=== PATIENT | male | born 1995 | race Caucasian/White ===

== ENCOUNTER 2019-09-22 16:18 | Emergency (ER) | payer OTHER, SELFPAY ==
--- OUTSIDE RECORDS SUMMARY | 2019-09-22 16:20 | XMS REPORT | Summary of Care ---
:1995 Author Organization [facility] - [facility] Address [address] [place] [id number] Care Team Providers Name Role Phone Chriss Bonilla Primary Care Provider Reason for Referral Radiology Services (STAT) Status Reason Specialty Diagnoses / Referred By Referred To Procedures Contact Contact New Request Diagnostic Diagnoses Knee injury, left, initial encounter Ventura Perez Radiology Procedures XR KNEE 4+ VW LEFT III, PA [address] [place] [address] [facility] [place] [place] [address] Radiology Services (STAT) Status Reason Specialty Diagnoses / Referred By Referred To Procedures Contact Contact New Request Diagnostic Diagnoses Knee injury, left, initial encounter Ventura Perez Radiology Procedures XR KNEE 4+ VW LEFT III, PA [address] [place] [address] [facility] [place] [address] Reason for Visit Reason Comments Knee Pain left Auth/Cert Status Reason Specialty Diagnoses / Referred By Referred To Procedures Contact Contact [facility] [address] [place] [address] [place] [address] Encounter Details Date Type Department Care Team Description 05/25/2019 Emergency [facility]Emer[facility] Ventura Perez III, Knee injury, left, Department PA initial encounter [address] [place] [address] Dr Chavez [facility] (Primary Dx) [place] [address] [place], [place] [id number] Allergies No Known Allergiesdocumented as of this encounter (statuses as of 05/25/2019) Medications Medication Sig Dispensed Refills Start Date End Date Status ibuprofen 600 mg Take 1 tablet 10 tablet 0 05/25/2019 05/30/2019 Active tabletIndications: Knee by mouth 4 injury, left, initial (four) times encounter daily as needed for Pain (scale 4-6) for up to 5 days. acetaminophen (TYLENOL) Take 3 tablets 60 tablet 0 05/25/2019 05/30/2019 Active 325 mg by mouth 4 tabletIndications: Knee (four) times injury, left, initial daily for 5 encounter days. This is the maximum safe dose for a healthy adult. traMADol (ULTRAM) 50 mg Take 1 tablet 9 tablet 0 05/25/2019 Active tabletIndications: Knee by mouth every injury, left, initial 8 (eight) hours encounter as needed for Pain (scale 4-6). cyclobenzaprine 5 mg Take 1 tablet 9 tablet 0 05/25/2019 Active tabletIndications: Knee by mouth 3 injury, left, initial (three) times encounter daily. documented as of this encounter (statuses as of 05/25/2019) Active Problems No known active problemsdocumented as of this encounter (statuses as of 2018) Social History Tobacco Use Types Packs/Day Years Used Date Never Assessed Sex Assigned at Date Recorded Not on file Job Start Date Occupation Industry Not on file Not on file Not on file Travel History Travel Start Travel End No recent travel history available. documented as of this encounter Last Filed Vital Signs Vital Sign Reading Time Taken Comments Blood Pressure 130/72 05/25/2019 3:35 PM CDT Pulse 96 05/25/2019 3:35 PM CDT Temperature 36.8 C (98.2 F) 05/25/2019 3:35 PM CDT Respiratory Rate 18 05/25/2019 3:35 PM CDT Oxygen Saturation 98% 05/25/2019 3:35 PM CDT Inhaled Oxygen Concentration - - Weight 123.8 kg (273 lb) 05/25/2019 3:35 PM CDT Height 180.3 cm (5' 11") 05/25/2019 3:35 PM CDT Body Mass Index 38.08 05/25/2019 3:35 PM CDT documented in this encounter Discharge Instructions Ventura Nieto III, PA - 05/25/2019 @@@@@@@@@@@@@@@@@@@@@@@@@@@@@@@@@@@@@@@@@@@@@@@@@@@@@ [facility] HEALTH RETURN TO WORK / SCHOOL EXCUSE Paolo Dwyer Jr. WAS SEEN IN THE ER AND DISCHARGED 05/25/2019 TODAY, 4:37 PM & May return to Work / School / Incarceration on 05/26/19 with No limitations unless indicated below. ___The following limitations apply until pt is seen by Physician and cleared to return to normal activity. ___ Light duty ___ No Sports ___ No work ___ Do not return until fever free for 24 hours. ___ No school [employer] [facility] [address] [place] [address] [place] [address] If you are unprepared to return to work tomorrow due to pain please give this note to your employer and make a follow up appointment with your MD for further evaluation and limitations. ### The patient may have been given Narcotic pain medications during their stay in the ED that may show up on a Drug Screen. The hospital discharge paper work will identify these medications. @@@@@@@@@@@@@@@@@@@@@@@@@@@@@@@@@@@@@@@@@@@@@@@@@@@@@ Thank you for trusting us with your care. The emergency room is the first stop in the medical management of your complaint . Our primary pupose is to identify life threatening emergancies and to rapidly address those issues. We are releasing you today after evaluation for emergency or life threatening problems related to your complaint. At this time we are comfortable that your condition is stable enough to go home, take oral medications and follow up for further care. If you can't afford a doctor OR MEDICATIONS consider [facility], [address] [place] [address]; [phone] Medications What's Trending WILL SHOW YOU WHERE YOU CAN GET YOUR MEDICATIONS CHEAPEST. 1. Call your doctor and let them know you were seen for ICD-10-CM ICD-9-CM 1. Knee injury, left, initial encounter S89.92XA 959.7 2. Schedule a follow up within 3 days of your ER visit. 3. Take your prescriptions to the pharmacy and get them filled today. 4. Take the medications as prescribed and until completed. 5. You have been referred for further care 6. You may need additional tests Your doctors will help you figure out what you need and how to get them done. 7. Please read all paperwork provided to you. Additional instructions See Attached AttachmentsThe following attachments cannot be sent through Care Everywhere.Sprains and Fractures: First Aid (Guinean)Strains and Sprains, Self- Care for ([place]an)documented in this encounter Plan of Treatment Name Type Priority Associated Diagnoses Date/Time XR KNEE 4+ VW LEFT IMAGING STAT Knee injury, left, 05/25/2019 4:29 PM CDT initial encounter Health Maintenance Due Date Last Done Comments VARICELLA VACCINES (1 of 2 - 13+ 01/28/2008 2-dose series) DTaP,Tdap,and Td Vaccines (1 - 2014 Tdap) INFLUENZA VACCINE (#1) 2019 HPV VACCINES Aged Out No longer eligible based on patient's age to complete this topic PNEUMOCOCCAL 0-64 YEARS COMBINED Aged Out No longer eligible based on SERIES patient's age to complete this topic documented as of this encounter Procedures Procedure Name Priority Date/Time Associated Diagnosis Comments XR KNEE 4+ VW LEFT STAT 05/25/2019 4:29 PM CDT Knee injury, left, initial encounter Procedure Note - [facility], Radiant Results Inft User - 05/25/2019 5:07 PM CDT EXAM: XR KNEE 4+ VW LEFT HISTORY: knee injury COMPARISON: None available. FINDINGS: Radiographs of the left knee demonstrate no acute fracture or dislocation. Diffuse soft tissue swelling of the knee is seen. Severe prepatellar soft tissue swelling is consistent with prepatellar bursitis. IMPRESSION No acute bony abnormality. Prepatellar bursitis. NOTICE OF PRIVACY PRACTICES Routine 05/25/2019 3:30 PM CDT CONSENT/REFUSAL FOR DIAGNOSIS AND TREATMENT Routine 05/25/2019 3:29 PM CDT documented in this encounter Results Not on filedocumented in this encounter Visit Diagnoses Diagnosis Knee injury, left, initial encounter - Primary documented in this encounter Administered Medications Medication Order MAR Action Action Date Dose Rate Site HYDROcodone-acetaminophen Given 05/25/2019 4:00 PM CDT 1 tablet (NORCO 5) 5-325 mg tablet 1 tablet 1 tablet, Oral, ONCE, 1 dose, 05/25/19 at 1700, [place] documented in this encounter
--- OUTSIDE RECORDS SUMMARY | 2019-09-22 16:20 | XMS REPORT ---
:1995 Author Organization [facility] Address [address] [place] [address] Dr. Kirk [address] [place] [address] Care Team Providers Name Role Phone Unavailable Unavailable Unavailable Problems This patient has no known problems. Allergies, Adverse Reactions, Alerts This patient has no known allergies or adverse reactions. Medications This patient has no known medications.
[2019-09-22 16:46] LABS: Absolute Lymphocytes (CBC) 2.3 K/uL (0.7-4.9); Basophils % 0.4 % (0-1.3); Hematocrit 43.2 % (39.6-49.0); Lymphocytes % 21.3 % (15.3-44.8); MPV 10.3 fL (7.6-11.3); RBC Red Blood Cell Count 4.77 M/uL (4.33-5.43)
[2019-09-22] MEDS ORDERED: FENTANYL CITR 100 MCG/2 ML ONE (16:58)
[2019-09-22 17:05] LABS: BUN Blood Urea Nitrogen 12 mg/dL (7-18); Bicarbonate 26 mmol/L (21-32); Glucose Level 92 mg/dL (74-106); Potassium 3.9 mmol/L (3.5-5.1); Sodium Level 141 mmol/L (136-145)
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
[2019-09-22 19:10] VITALS: BP 121/97; TEMP 97.8; O2SAT 100
== END 2019-09-22 18:15 | disposition home or self-care (01) ==
LOC: ER 16:18
DX: S00.81XA Abrasion of other part of head, initial encounter (principal); S50.811A Abrasion of right forearm, initial encounter; S80.812A Abrasion, left lower leg, initial encounter; S80.811A Abrasion, right lower leg, initial encounter; S40.011A Contusion of right shoulder, initial encounter; M25.511 Pain in right shoulder; V28.4XXA Motorcycle driver injured in noncollision transport accident in traffic accident, initial encounter
CPT/HCPCS: 36415; 70450; 71260; 72125; 74177; 80048; 85025; 86850; 86900; 86901; 96374; 99284; J3010; Q9967

== ENCOUNTER 2021-08-19 19:07 | Emergency (ER) | payer SELFPAY ==
[2021-08-19 21:05] LABS: SARS-COV-2 RT PCR NEGATIVE (NEGATIVE)
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
[2021-08-19 22:15] VITALS: BP 136/74; TEMP 97.7; O2SAT 100
== END 2021-08-19 21:58 | disposition home or self-care (01) ==
LOC: ER 19:07
DX: Z20.822 Contact with and (suspected) exposure to COVID-19 (principal)
CPT/HCPCS: 0240U; 87070; 87081; 99283

== ENCOUNTER 2021-08-22 19:05 | Emergency (ER) | payer SELFPAY ==
--- OUTSIDE RECORDS SUMMARY | 2021-08-22 19:07 | XMS REPORT | Continuity of Care Document ---
:1995 Author Organization [facility] t Address [address] [place] [address] Dr. Kirk [address] [place] [id number] Care Team Providers Name Role Phone Unavailable Unavailable Unavailable Problems This patient has no known problems. Allergies, Adverse Reactions, Alerts This patient has no known allergies or adverse reactions. Medications This patient has no known medications. Procedures This patient has no known procedures. Results This patient has no known results.
--- NOTE | 2021-08-22 20:38 | RAD REPORT ---
EXAM DESCRIPTION: RAD - Wrist Left 3 View - 08/22/2021 8:21 pm CLINICAL HISTORY: PAIN Pain COMPARISON: No comparisons FINDINGS: No fracture or dislocation seen. No foreign body or other soft tissue abnormality. IMPRESSION: Negative examination.
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
[2021-08-22 21:38] VITALS: BP 96/54; TEMP 98.8; O2SAT 100
== END 2021-08-22 21:29 | disposition home or self-care (01) ==
LOC: ER 19:05
DX: G89.11 Acute pain due to trauma (principal); S80.02XA Contusion of left knee, initial encounter; V49.40XA Driver injured in collision with unspecified motor vehicles in traffic accident, initial encounter; F17.210 Nicotine dependence, cigarettes, uncomplicated; Z87.820 Personal history of traumatic brain injury
CPT/HCPCS: 72100; 99284

== ENCOUNTER 2022-02-24 14:34 | Emergency (ER) | payer SELFPAY ==
--- OUTSIDE RECORDS SUMMARY | 2022-02-24 14:36 | XMS REPORT | Continuity of Care Document ---
:1995 Author Organization [facility] t Address [address] [place] [address] Dr. Kirk [address] [place] [id number] Care Team Providers Name Role Phone Unavailable Unavailable Unavailable Problems This patient has no known problems. Allergies, Adverse Reactions, Alerts This patient has no known allergies or adverse reactions. Medications This patient has no known medications. Procedures This patient has no known procedures. Results This patient has no known results.
--- NOTE | 2022-02-24 15:38 | RAD REPORT ---
EXAM DESCRIPTION: RAD - Chest Single View - 02/24/2022 3:20 pm CLINICAL HISTORY: CHEST PAIN COMPARISON: CHEST PA AND LAT 2 VIEW dated 05/11/2009; CHEST PA AND LAT 2 VIEW dated 10/13/2005 FINDINGS: Lines: None. Lungs: No evidence of edema or pneumonia. Pleural: No significant pleural effusions or pneumothorax. Cardiac: The heart size is within normal limits. Bones: No acute fractures. Other: GRAPHIC USER INTERFACE DESIGNER shunt overlies the right hemithorax. IMPRESSION: No acute cardiopulmonary disease.
[2022-02-24 15:46] LABS: Absolute Lymphocytes (CBC) 1.7 K/uL (0.7-4.9); Hematocrit 43.9 % (39.6-49.0); MPV 9.5 fL (7.6-11.3); RBC Red Blood Cell Count 4.77 M/uL (4.33-5.43)
[2022-02-24 15:52] LABS: Protime INR 1.04
[2022-02-24 16:06] LABS: ALT/SGPT 31 U/L (12-78); AST/SGOT 14 U/L (15-37); Albumin 3.8 g/dL (3.4-5.0); Alkaline Phosphatase 89 U/L (45-117); BUN Blood Urea Nitrogen 13 mg/dL (7-18); Bicarbonate 26 mmol/L (21-32); Bilirubin Direct 0.1 mg/dL (0-0.2); Bilirubin Total 0.3 mg/dL (0.2-1.0); Glomerular Filtration Rate 125 ml/min (=/>90); Glucose Level 97 mg/dL (74-106); Magnesium 2.5 mg/dL (1.8-2.4); NT PRO-BNP 32 pg/mL (<125); Potassium 3.9 mmol/L (3.5-5.1); Protein, Total 6.9 g/dL (6.4-8.2); Sodium Level 140 mmol/L (136-145)
[2022-02-24 16:18] LABS: Troponin High Sensitivity < 3.0 pg/mL (<58.9)
[2022-02-24] MEDS ORDERED: ASPIRIN 81 MG CHEWABLE TABLET ONE (16:59)
--- NOTE | 2022-02-24 17:28 | RAD REPORT ---
EXAM DESCRIPTION: CT - Head Brain Wo Cont - 02/24/2022 5:12 pm CLINICAL HISTORY: Dizziness COMPARISON: Head C Spine Cap W Con dated 09/22/2019 TECHNIQUE: All CT scans are performed using dose optimization technique as appropriate and may inclu de automated exposure control or mA/KV adjustment according to patient size. FINDINGS: No intracranial hemorrhage, hydrocephalus or extra-axial fluid collection.No areas of brai n edema or evidence of midline shift. Left parietal craniotomy. Multifocal areas of encephalomalacia including the middle cranial fossa and frontal lobes. ELASTIC ATTACHER ZIGZAG shunt in place. Ventricular configuration is similar. The paranasal sinuses and mastoids are clear. IMPRESSION: No acute intracranial abnormality.
[2022-02-24] MEDS ORDERED: MECLIZINE HCL 12.5 MG TAB ONE (18:19)
--- NOTE | 2022-02-24 19:24 | ER ---
Nurse's Notes [facility] Name: Paolo Dwyer Jr Age: 27 yrs Sex: Male : 1995 Arrival Date: 02/24/2022 Time: 14:35 Bed 10 Private MD: Diagnosis: Vertigo;Chest Pain;Pericarditis Presentation: 02/24 14:43 Chief complaint: Patient states: episodes of dizziness, sweating, left arm pain, and aa5 chest pain x 2 weeks ago. Coronavirus screen: At this time, the client does not indicate any symptoms associated with coronavirus-19. Ebola Screen: No symptoms or risks identified at this time. Initial Sepsis Screen: Does the patient meet any 2 criteria? No. Patient's initial sepsis screen is negative. Does the patient have a suspected source of infection? No. Patient's initial sepsis screen is negative. Risk Assessment: Do you want to hurt yourself or someone else? Patient reports no desire to harm self or others. Onset of symptoms was February 2022. 14:43 Acuity: REJI 3 aa5 14:43 Method Of Arrival: Ambulatory aa5 Historical: - Allergies: 14:45 No Known Allergies; aa5 - Home Meds: 14:45 None [Active]; aa5 - PMHx: 14:45 TBI; aa5 - PSHx: 14:45 Brain shunt; aa5 - Immunization history:: Adult Immunizations unknown. - Social history:: Smoking status: Patient reports the use of cigarette tobacco products, smokes one-half pack cigarettes per day. Screenin:25 Abuse screen: Denies threats or abuse. Nutritional screening: No deficits noted. jb4 Tuberculosis screening: No symptoms or risk factors identified. Fall Risk None identified. Assessment: 15:25 General: Appears in no apparent distress. comfortable, Behavior is calm, cooperative, jb4 appropriate for age. Pain: Complains of pain in left lateral anterior chest Pain radiates to left arm Pain currently is 0 out of 10 on a pain scale. at worst was 6 out of 10 on a pain scale. Quality of pain is described as pressure, Pain began 1 hour ago. Neuro: Level of Consciousness is awake, alert, obeys commands, Oriented to person, place, time, situation. Cardiovascular: Patient's skin is warm and dry. Respiratory: Airway is patent Respiratory effort is even, unlabored, Respiratory pattern is regular, symmetrical. Derm: Skin is intact, Skin is pink, warm \T\ dry. Musculoskeletal: Circulation, motion, and sensation intact. Range of motion: intact in all extremities. 17:00 Reassessment: Patient appears in no apparent distress at this time. Patient and/or jb4 family updated on plan of care and expected duration. Pain level reassessed. Patient is alert, oriented x 3, equal unlabored respirations, skin warm/dry/pink. 18:00 Reassessment: Patient appears in no apparent distress at this time. Patient and/or jb4 family updated on plan of care and expected duration. Pain level reassessed. Patient is alert, oriented x 3, equal unlabored respirations, skin warm/dry/pink. 19:00 Reassessment: Patient appears in no apparent distress at this time. Patient and/or jb4 family updated on plan of care and expected duration. Pain level reassessed. Patient is alert, oriented x 3, equal unlabored respirations, skin warm/dry/pink. Vital Signs: 14:43 BP 113 / 60; Pulse 83; Resp 18 S; Temp 98.0(TE); Pulse Ox 97% on R/A; Weight 107.05 kg aa5 (R); Height 5 ft. 11 in. (180.34 cm) (R); 15:51 BP 109 / 60; Pulse 70; Resp 16; Pulse Ox 100% on R/A; jb4 17:00 BP 110 / 76; Pulse 78; Resp 16; Pulse Ox 98% on R/A; jb4 19:00 BP 119 / 80; Pulse 81; Resp 16; Pulse Ox 100% on R/A; jb4 14:43 Body Mass Index 32.91 (107.05 kg, 180.34 cm) aa5 ED Course: 14:35 Patient arrived in ED. as 14:43 Arm band placed on. aa5 14:45 Triage completed. aa5 15:00 Octavio Leslie PA is PHCP. [facility] 15:00 Kimberlee Albright MD is Attending Physician. [facility] 15:20 Anuj Bourne, RN is Primary Nurse. jb4 15:21 XRAY Chest (1 view) In Process Unspecified. EDMS 15:25 Patient has correct armband on for positive identification. Client placed on continuous jb4 cardiac and pulse oximetry monitoring. NIBP monitoring applied. equipment monitor phototypesetting on. 15:32 Initial lab(s) drawn, by me, sent to lab. Inserted saline lock: 18 gauge in right jb4 antecubital area, using aseptic technique. Blood collected. Patient maintains SpO2 saturation greater than 95% on room air. 17:14 CT Head Brain wo Cont In Process Unspecified. EDMS 19:00 No provider procedures requiring assistance completed. IV discontinued, intact, jb4 bleeding controlled, No redness/swelling at site. Pressure dressing applied. 19:22 Evin Dowd MD is Referral Physician. vertio Administered Medications: 17:00 Drug: Aspirin Chewable Tablet 324 mg Route: PO; jb4 19:43 Follow up: Response: No adverse reaction jb4 18:15 Drug: Meclizine 25 mg Route: PO; jb4 19:43 Follow up: Response: No adverse reaction; Marked relief of symptoms jb4 Medication: 15:25 VIS not applicable for this client. jb4 Outcome: 19:24 Discharge ordered by . verito 19:45 Discharged to home ambulatory, with family. jb4 19:45 Condition: stable 19:45 Discharge instructions given to patient, Instructed on discharge instructions, follow up and referral plans. medication usage, Demonstrated understanding of instructions, follow-up care, medications, Prescriptions given X 2. 19:47 Patient left the ED. jb4 Signatures: Dispatcher [employer] EDMS Octavio Leslie PA PA jmm Martinez, Amelia as Calderon, Audri, RN RN aa5 Anuj Bourne RN RN jb4
--- NOTE | 2022-02-24 19:24 | EDPHYS ---
Physician Documentation [facility] Name: Paolo Dwyer Jr Age: 27 yrs Sex: Male : 1995 Arrival Date: 02/24/2022 Time: 14:35 Bed 10 Private MD: ED Physician Kimberlee Albright HPI: 02/24 15:08 This 27 yrs old Male presents to ER via Ambulatory with complaints of Chest Pain, Arm [facility] Pain, Dizziness. 15:08 This is a 27-year-old male with history of traumatic brain injury that presents emerged [facility] part with complaints of intermittent episodes of chest pain since this past Sunday. Patient also complains of episodes of dizziness that are acute in onset with nausea. Patient describes the dizziness as the room spinning. Patient states having cough and congestion for over 2 months now which she attributes to her smoking. Patient states that the chest pain occasionally will radiate into the left arm.. Historical: - Allergies: 14:45 No Known Allergies; aa5 - Home Meds: 14:45 None [Active]; aa5 - PMHx: 14:45 TBI; aa5 - PSHx: 14:45 Brain shunt; aa5 - Immunization history:: Adult Immunizations unknown. - Social history:: Smoking status: Patient reports the use of cigarette tobacco products, smokes one-half pack cigarettes per day. ROS: 15:08 Constitutional: Negative for fever, chills, and weight loss. [facility] 15:08 Cardiovascular: Positive for chest pain. 15:08 Neuro: Positive for dizziness. 15:08 All other systems are negative. Exam: 15:08 Constitutional: This is a well developed, well nourished patient who is awake, alert, jmm and in no acute distress. Head/Face: atraumatic. 15:08 Neck: Trachea midline, Supple Chest/axilla: Normal chest wall appearance and motion. Cardiovascular: Regular rate and rhythm. No edema appreciated Respiratory: Normal respirations, no respiratory distress appreciated Abdomen/GI: Non distended, soft Back: Normal ROM Skin: General appearance color normal MS/ Extremity: Moves all extremities, no obvious deformities appreciated, no edema noted to the lower extremities Neuro: Awake and alert Psych: Behavior is normal, Mood is normal, Patient is cooperative and pleasant 15:08 Eyes: Nystagmus: nystagmus with fast component noted. 15:08 ENT: TM's: erythema, that is moderate, bilaterally. Vital Signs: 14:43 BP 113 / 60; Pulse 83; Resp 18 S; Temp 98.0(TE); Pulse Ox 97% on R/A; Weight 107.05 kg aa5 (R); Height 5 ft. 11 in. (180.34 cm) (R); 15:51 BP 109 / 60; Pulse 70; Resp 16; Pulse Ox 100% on R/A; jb4 17:00 BP 110 / 76; Pulse 78; Resp 16; Pulse Ox 98% on R/A; jb4 19:00 BP 119 / 80; Pulse 81; Resp 16; Pulse Ox 100% on R/A; jb4 14:43 Body Mass Index 32.91 (107.05 kg, 180.34 cm) aa5 MDM: 16:41 Patient medically screened. [facility] 19:22 Data reviewed: vital signs, nurses notes. Counseling: I had a detailed discussion with verito the patient and/or guardian regarding: the historical points, exam findings, and any diagnostic results supporting the discharge/admit diagnosis, lab results, radiology results, the need for outpatient follow up, to return to the emergency department if symptoms worsen or persist or if there are any questions or concerns that arise at home. 19:22 ED course: Patient states feeling much better. Repeat troponin was normal. I do not domonique currently suspect ACS. EKG is concerning for pericarditis, advised to follow-up with cardiology for further evaluation otherwise given strict return precautions. Patient understood agrees plan of care.. 02/24 15:08 Order name: Basic Metabolic Panel; Complete Time: 16:41 [facility] 02/24 15:08 Order name: CBC with Diff; Complete Time: 16:41 [facility] 02/24 15:08 Order name: LFT's; Complete Time: 16:41 [facility] 02/24 15:08 Order name: Magnesium; Complete Time: 16:41 [facility] 02/24 15:08 Order name: NT PRO-BNP; Complete Time: 16:41 [facility] 02/24 15:08 Order name: PT-INR; Complete Time: 16:41 [facility] 02/24 15:08 Order name: Troponin HS; Complete Time: 16:41 [facility] 02/24 15:08 Order name: XRAY Chest (1 view); Complete Time: 16:41 [facility] 02/24 15:08 Order name: EKG; Complete Time: 15:11 [facility] 02/24 15:08 Order name: Cardiac monitoring; Complete Time: 15:20 [facility] 02/24 16:41 Order name: CT Head Brain wo Cont; Complete Time: 17:33 [facility] 02/24 18:14 Order name: Troponin High Sensitivity; Complete Time: 19:00 [facility] 02/24 15:08 Order name: EKG - Nurse/Tech; Complete Time: 15:20 [facility] 02/24 15:08 Order name: IV Saline Lock; Complete Time: 15:31 [facility] 02/24 15:08 Order name: Labs collected and sent; Complete Time: 15:31 [facility] 02/24 15:08 Order name: O2 Per Protocol; Complete Time: 15:20 [facility] 02/24 15:08 Order name: O2 Sat Monitoring; Complete Time: 15:20 [facility] 02/24 16:43 Order name: EKG - Nurse/Tech; Complete Time: 17:10 [facility] Administered Medications: 17:00 Drug: Aspirin Chewable Tablet 324 mg Route: PO; jb4 19:43 Follow up: Response: No adverse reaction jb4 18:15 Drug: Meclizine 25 mg Route: PO; jb4 19:43 Follow up: Response: No adverse reaction; Marked relief of symptoms jb4 Disposition: 02/25 08:11 Co-signature as Attending Physician, Kimberlee Albright MD I agree with the assessment ma2 and plan of care. Disposition Summary: 02/24/22 19:24 Discharge Ordered Location: Home [facility] Condition: Stable [facility] Diagnosis - Vertigo jm - Chest Pain jmm - Pericarditis [facility] Followup: [facility] - With: Evin Dowd MD - When: 2 - 3 days - Reason: Recheck today's complaints, Continuance of care, Re-evaluation by your physician Discharge Instructions: - Discharge Summary Sheet jm - Pericarditis jm - Labyrinthitis [facility] Forms: - Medication Reconciliation Form [facility] - Thank You Letter jmm - Antibiotic Education jmm - Prescription Opioid Use m - Family Work Release jb4 Prescriptions: - Meclizine 25 mg Oral Tablet - take 1 tablet by ORAL route every 8 hours As needed; 30 tablet; Refills: 0, jmm Product Selection Permitted - Prednisone 20 mg Oral Tablet - take 3 tablets by ORAL route once daily for 5 days; 15 tablet; Refills: 0, verito Product Selection Permitted Signatures: [employer] Octavio Allen PA PA jmm Calderon, Audri, RN RN aa5 Anuj Bourne RN RN jb4 Kimberlee Albright MD MD ma2
[2022-02-24 20:01] VITALS: TEMP 98
[2022-02-24 20:07] VITALS: BP 119/80; O2SAT 100
--- NOTE | 2022-02-27 11:57 | EKG ---
Test Date: 2022-02-24 Test Time: 15:12:05 Entry Level Electrical Engineer: GRETA MEASUREMENT RESULTS: Intervals: Rate: 74 CT: 148 QRSD: 86 QT: 362 QTc: 401 [place]: P: 58 CT: 148 QRS: 22 T: 0 INTERPRETIVE STATEMENTS: Normal sinus rhythm with sinus arrhythmia ST elevation, consider lateral injury or acute infarct ACUTE DE / STEMI Abnormal ECG No previous ECG available for comparison Electronically Signed On 02-27-22 11:51:01 CDT by Evin Dowd
== END 2022-02-24 19:47 | disposition home or self-care (01) ==
LOC: ER 14:34
DX: R07.9 Chest pain, unspecified (principal); I31.9 Disease of pericardium, unspecified; R42 Dizziness and giddiness; F17.210 Nicotine dependence, cigarettes, uncomplicated; Z87.820 Personal history of traumatic brain injury
CPT/HCPCS: 36415; 70450; 71045; 80048; 80076; 83735; 83880; 84484; 85025; 85610; 93005; 99285; J8597